=== PATIENT | female | born 1995 | race Caucasian/White ===

== ENCOUNTER 2020-08-07 12:47 | Emergency (ER) | payer OTHER, SELFPAY ==
[2020-08-07 13:16] VITALS: BP 148/85; PULSE 70; RESP 16; TEMP 36.9; O2SAT 98; BMI 23.8
[2020-08-07] MEDS: MAG HYDROX/ALUMINUM/SIMETH SUS 20 ML, LIDOCAINE VISCOUS 2% 15 ML PO (16:23)
[2020-08-07 16:34] LABS: Alanine Aminotransferase 13 IU/L (<35); Albumin 5.5 g/dL (3.5-5.0); Albumin Globulin Ratio 1.5 (1.0-2.8); Alkaline Phosphatase 49 U/L (38-126); Aspartate Aminotransferase 35 IU/L (14-36); BUN Creatinine Ratio 9.7 (6-22); Bilirubin Total 0.7 mg/dL (0.2-1.3); Blood Urea Nitrogen 9 mg/dL (7-17); Calcium 10.4 mg/dL (8.4-10.2); Carbon Dioxide 21 mmol/L (22-32); Chloride 103 mmol/L (98-107); Creatine Kinase 81 U/L (30-135); Estimated Glomerular Filt Rate > 60.0 mL/min (>60); Globulin 3.7 g/dL (1.7-4.1); Glucose 87 mg/dL (70-100); HEMOLYSIS 38 (0-50); Potassium 4.1 mmol/L (3.4-5.1); Sodium 138 mmol/L (137-145); Total Protein 9.2 g/dL (6.3-8.2)
[2020-08-07 16:35] LABS: Add Manual Diff / Slide Review NO; Basophils Absolute Auto 0 /uL (0-100); Basophils Percent Auto 0.4 % (0-2); Eosinophils Absolute Auto 300 /uL (0-450); Eosinophils Percent Auto 2.4 % (2-4); Hematocrit 42.9 % (36-46); Hemoglobin 14.5 g/dL (12.0-16.0); Lymphocytes Absolute Auto 3800 /uL (1100-4500); Lymphocytes Percent Auto 32.9 % (25-40); Mean Corpuscular HGB Conc 33.9 % (30-36); Mean Corpuscular Volume 91.3 fL (80-100); Monocytes Absolute Auto 500 /uL (0-900); Monocytes Percent Auto 4.1 % (3-14); Neutrophils Absolute Auto 6900 /uL (1500-7000); Neutrophils Percent Auto 60.2 % (50-75); Platelet Count 174 X10^3/uL (150-400); Red Cell Distribution Width 12.3 % (11.6-14.8); White Blood Cell Count 11.4 X10^3/uL (4.5-11.0)
[2020-08-07 16:44] LABS: Troponin I < 0.012 ng/mL (0.01-0.034)
[2020-08-07 16:48] VITALS: BP 115/62; PULSE 67; RESP 16; O2SAT 100
--- NOTE | 2020-08-07 17:43 | ED.ABDPAIN ---
HPI - Abdominal Pain General Chief Complaint: Abdominal Pain Stated Complaint: chest pain, heart burn, started Friday Time Seen by Provider: 08/07/20 17:38 Source: patient Mode of arrival: Ambulatory Limitations: no limitations History of Present Illness HPI narrative: This is a 24-year-old female comes emergency department complaint of chest pain that started Friday. Patient states she had epigastric discomfort moving up into her chest. She states it felt similar to heartburn. She has had episodes in the past but this lasted throughout the weekend. She denies any fevers or chills. No cough cold or congestion. No shortness of breath. No syncope. She has not had any vomiting. She did have some mild nausea when she would try to eat with her symptoms. Patient denies any black or bloody stools, no urinary symptoms. No swelling or changes to extremity. She does take ibuprofen every other day, she states she drinks alcohol daily usually 1 drink but multiples on the weekend. Her symptoms started after having large amount of fireball on Friday. She tried Tums without any improvement and came today at the urging of her physician. She has follow-up set up already with her primary care physician. She denies any other past medical history. No prior surgeries. She is allergic to amoxicillin. She does smoke. She uses marijuana but denies other illicit. No family history of cardiac, pulmonary or embolic history. Related Data Previous Rx's Medication Instructions Recorded pantoprazole [Protonix] 40 mg PO DAILY #30 tab 08/07/20 Allergies Allergy/AdvReac Type Severity Reaction Status Date / Time amoxicillin Allergy Rash Verified 08/07/20 13:24 Review of Systems Review of Systems ROS Unobtainable: All systems reviewed & are unremarkable except as noted in HPI and below Patient History Social History Smoking Status: Never smoker Smoking Status: Never smoker tobacco type: vaping alcohol intake frequency: 0-2 drinks per day Alcohol type: hard liquor Substance Use Type: marijuana Exam Narrative Exam Narrative: GENERAL: Alert and oriented x three, well-nourished female in mild distress HEENT: Head normocephalic, atraumatic, EOMI, pupils reactive, face symmetric, moist mucous membranes NECK: Supple, full range of motion CARDIOVASCULAR: Regular rate and rhythm without murmurs, rubs or gallops. Not reproducible chest pain. RESPIRATORY: Breath sounds equal bilaterally, no wheezes rales or rhonchi. ABDOMEN: Soft, nontender. Normoactive bowel sounds all 4 quadrants. No guarding or rebound, rigidity, no mass : No CVA tenderness EXTREMITIES: Normal range of motion, no clubbing or edema. Neurovascularly intact NEUROLOGICAL: Cranial nerves II through XII grossly intact. Moving all extremities SKIN: Warm, dry, no petechiae, no rashes or lesions. Initial Vital Signs Initial Vital Signs: Vital Signs Temperature 98.5 F 08/07/20 13:16 Pulse Rate 70 08/07/20 13:16 Respiratory Rate 16 08/07/20 13:16 Blood Pressure 148/85 H 08/07/20 13:16 Pulse Oximetry 98 08/07/20 13:16 Course Orders Ordered: ED Orders 08/07/20 16:10 Complete Blood Count AUTO DIFF Stat Comprehensive Metabolic Panel Stat Troponin & CK Cardiac Panel Stat 08/07/20 16:16 Thyroid Stimulating Hormone Stat Discontinued Medications Al Hydrox/Mg Hydrox/Simethicone 20 ml/ Lidocaine HCl 15 ml 0 ml PO NOW ONE Stop: 08/07/20 16:17 Last Admin: 08/07/20 16:23 Dose: 35 ml Documented by: JEAN Vital Signs Vital signs: Vital Signs - 8 hr 08/07/20 13:16 08/07/20 16:48 Temperature 98.5 F Pulse Rate 70 67 Respiratory Rate 16 16 Blood Pressure 148/85 H 115/62 Pulse Oximetry 98 100 MDM - Abdominal Pain Lab Data Attestation: I reviewed the patient's lab results. Result diagrams: 08/07/20 16:10 08/07/20 16:10 Labs: Lab Results 08/07/20 08/07/20 08/07/20 Range/Units 16:10 16:10 16:16 WBC 11.4 H (4.5-11.0) X10^3/uL RBC 4.70 (4.0-5.2) X10^6/uL Hgb 14.5 (12.0-16.0) g/dL Hct 42.9 (36-46) % MCV 91.3 (80-100) fL MCH 31.0 (26-34) PG MCHC 33.9 (30-36) % RDW 12.3 (11.6-14.8) % Plt Count 174 (150-400) X10^3/uL Neut % (Auto) 60.2 (50-75) % Lymph % (Auto) 32.9 (25-40) % [place] % (Auto) 4.1 (3-14) % Eos % (Auto) 2.4 (2-4) % Baso % (Auto) 0.4 (0-2) % Neut # (Auto) 6900 (5227-2367) /uL Lymph # (Auto) 3800 (9264-3435) /uL [place] # (Auto) 500 (0-900) /uL Eos # (Auto) 300 (0-450) /uL Baso # (Auto) 0 (0-100) /uL Sodium 138 (137-145) mmol/L Potassium 4.1 (3.4-5.1) mmol/L Chloride 103 (98-107) mmol/L Carbon Dioxide 21 L (22-32) mmol/L BUN 9 (7-17) mg/dL Creatinine 0.93 (0.52-1.04) mg/dL Estimated GFR > 60.0 (>60) mL/min BUN/Creatinine Ratio 9.7 (6-22) Glucose 87 (70-100) mg/dL Calcium 10.4 H (8.4-10.2) mg/dL Total Bilirubin 0.7 (0.2-1.3) mg/dL AST 35 (14-36) IU/L ALT 13 (<35) IU/L Alkaline Phosphatase 49 (38-126) U/L Total Creatine Kinase 81 (30-135) U/L CK-MB (CK-2) TNP CK-MB (CK-2) Rel Index TNP Troponin I < 0.012 (0.01-0.034) ng/mL Total Protein 9.2 H (6.3-8.2) g/dL Albumin 5.5 H (3.5-5.0) g/dL Globulin 3.7 (1.7-4.1) g/dL Albumin/Globulin Ratio 1.5 (1.0-2.8) TSH 1.04 (0.47-4.68) uIU/mL ECG Data Attestation: I personally reviewed and interpreted this ECG as follows: Prior ECG tracings: not available for review Interpretation: Sinus rhythm with sinus arrhythmia rate of 92 MN 130 QRS is 78 QTC 432. No acute ST elevation or depression noted. MDM Narrative Medical decision making narrative: This is a 24-year-old female comes to the emergency department with complaint of anterior chest pain in the epigastrium which started Friday. Patient's symptoms resolved with a GI cocktail here in the department. EKG did not show any acute changes. Labs are unremarkable here in the department. Patient does does not have any significant cardiac history, no family history and patient symptoms are very consistent with heartburn. Patient has been taking NSAIDs quite regularly. Plan to put her on Protonix for short term to see if this improves her symptoms. [id number] options for short-term management patient already has follow-up arranged in the next week. Discharge Plan Departure Patient Disposition: Home Clinical Impression: Heartburn Instructions: DI for Heartburn Activity Restrictions/Additional Instructions: Follow-up with your physician at your scheduled appointment. I would recommend taking Protonix once daily. This may help at your symptoms. You may take Tums and or Maalox. Return for fevers, chills, new chest pain or shortness of breath, persistent vomiting, black or bloody stools, lightheadedness or passing out or other new or concerning symptoms. Prescriptions: New pantoprazole [Protonix] 40 mg tablet,delayed release (DR/EC) 40 mg PO DAILY Qty: 30 RF: 0
[2020-08-07 17:53] LABS: Thyroid Stimulating Hormone 1.04 uIU/mL (0.47-4.68)
== END 2020-08-07 18:03 | disposition home or self-care (01) ==
PROVIDERS: Emergency Provider Emergency Medicine
DX: R12 Heartburn (principal); R07.89 Other chest pain
CPT/HCPCS: 80053; 82550; 84443; 84484; 85025; 93005; 93010; 99283; 99284

== ENCOUNTER 2021-02-27 12:00 | Emergency (ER) | payer OTHER, SELFPAY ==
[2021-02-27 12:05] VITALS: BP 144/75; PULSE 81; RESP 14; TEMP 36.8; O2SAT 99; BMI 22.2
[2021-02-27 12:47] LABS: COVID19 -Nasal RAPID Negative (Negative)
--- NOTE | 2021-02-27 13:32 | ED.URI ---
HPI - URI/Sore Throat <NATHANAEL Carreon - Last Filed: 02/27/21 15:29> General Chief Complaint: Upper Respiratory Symptoms Stated Complaint: covid/flu symptoms Time Seen by Provider: 02/27/21 12:52 Source: patient Mode of arrival: Ambulatory Limitations: no limitations History of Present Illness HPI Narrative: The patient is a 25-year-old female nonsmoker who presents with her for chief complaint of COVID/flu symptoms. The patient has had cough, fatigue, headache muscle aches and chills that started yesterday. She took Tylenol for these. She states she was slightly nauseous, denies any vomiting or diarrhea. She states that she is concerned about COVID, as she had a volleyball tournament on Friday and had a remote exposure. She states she had COVID initially, and started noting that she was having decreased sense of taste and smell, which she had with her initial round. She is fully vaccinated with Moderna. She is concerned about spreading it if she has it as she works as a hairdresser. She denies any chest pain shortness of breath. She has a cough. She complains of congestion. Related Data Previous Rx's Medication Instructions Recorded pantoprazole 40 mg tablet,delayed 40 mg PO DAILY #30 tab 08/07/20 release (Protonix) Allergies Allergy/AdvReac Type Severity Reaction Status Date / Time amoxicillin Allergy Rash Verified 02/27/21 12:09 Review of Systems <NATHANAEL Carreon - Last Filed: 02/27/21 15:29> Review of Systems Narrative: GENERAL: See HPI HEENT: See HPI RESPIRATORY: See HPI CARDIOVASCULAR: Denies chest pain, palpitations, orthopnea, edema, GASTROINTESTINAL: Denies nausea, vomiting, abdominal pain, diarrhea, constipation, melena. : Denies dysuria, frequency, incontinence, hematuria, urinary retention. MUSCULOSKELETAL: denies weakness, joint pain, or bony pain SKIN: Denies rash, skin lesions, or other NEUROLOGIC: Denies weakness, headache, numbness, change in speech, confusion, seizures, incoordination. PSYCHIATRIC: No concerning psychosocial issues. 12 point review of systems is negative except for those stated above Patient History <NATHANAEL Carreon - Last Filed: 02/27/21 15:29> Social History Smoking Status: Never smoker Smoking Status: Never smoker tobacco type: vaping alcohol intake frequency: 0-2 drinks per day Alcohol type: hard liquor Substance Use Type: marijuana Exam <FELTON Carreon - Last Filed: 02/27/21 15:29> Narrative Exam Narrative: GENERAL: This is a well-nourished, well-developed patient, in mild distress. HEAD: Atraumatic. Normocephalic. No temporal or scalp tenderness. EYES: Pupils equal round and reactive. Extraocular motions intact. No scleral icterus. No injection or drainage. ENT: Nose without bleeding, purulent drainage or septal hematoma. Throat without erythema, tonsillar hypertrophy or exudate. Uvula midline. Airway patent. Bilateral TMs pearly paul. NECK: Trachea midline. No JVD or lymphadenopathy. Supple, nontender, no meningeal signs. CARDIOVASCULAR: Regular rate and rhythm RESPIRATORY: Clear to auscultation. Breath sounds equal bilaterally. No wheezes, rales, or rhonchi. No cough noted. No increased respiratory effort. Speaking full sentences. GASTROINTESTINAL: Abdomen soft, non-tender, nondistended. No hepato-splenomegaly, or palpable masses. No guarding. EXTREMITIES: No clubbing, cyanosis, or edema. No joint tenderness, effusion, or edema noted. NEURO: AOx3. SKIN: No rash or erythema on visible skin Initial Vital Signs Initial Vital Signs: Vital Signs Temperature 98.3 F 02/27/21 12:05 Pulse Rate 81 02/27/21 12:05 Respiratory Rate 14 02/27/21 12:05 Blood Pressure 144/75 H 02/27/21 12:05 Pulse Oximetry 99 02/27/21 12:05 <Alessandro Muñiz MD - Last Filed: 03/05/21 12:17> Initial Vital Signs Initial Vital Signs: Vital Signs Temperature 98.3 F 02/27/21 12:05 Pulse Rate 81 02/27/21 12:05 Respiratory Rate 14 02/27/21 12:05 Blood Pressure 144/75 H 02/27/21 12:05 Pulse Oximetry 99 02/27/21 12:05 Course <FELTON Carreon - Last Filed: 02/27/21 15:29> Orders Ordered: ED Orders 02/27/21 12:12 COVID19 -Nasal swab/Pre-Proc Stat Vital Signs Vital signs: Vital Signs - 8 hr 02/27/21 12:05 Temperature 98.3 F Pulse Rate 81 Respiratory Rate 14 Blood Pressure 144/75 H Pulse Oximetry 99 <Alessandro Muñiz MD - Last Filed: 03/05/21 12:17> Orders Ordered: ED Orders 02/27/21 12:12 COVID19 -Nasal swab/Pre-Proc Stat Vital Signs Vital signs: Vital Signs - 8 hr 02/27/21 12:05 Temperature 98.3 F Pulse Rate 81 Respiratory Rate 14 Blood Pressure 144/75 H Pulse Oximetry 99 MDM - URI/Sore Throat <FELTON Carreon - Last Filed: 02/27/21 15:29> Lab Data Labs: Lab Results 02/27/21 Range/Units 12:12 SARS-CoV-2 (PCR) Negative (Negative) MDM Narrative Medical decision making narrative: The patient is a 25-year-old female who presents with a chief complaint of possible COVID. She tests negative today. I did discuss that since her symptoms started yesterday, she may be too early in her course of symptoms to test positive. Discussed at length staying at home, quarantine, work note given, encouraged [id number] measures as needed and able. Discussed the possibility of getting retested in a few days if necessary. Encouraged follow-up with primary care provider. Patient has no questions or concerns upon discharge states understanding of return precautions as well as follow-up care. She has been hemodynamically stable throughout her stay in the ER, nontoxic appearing. <Alessandro Muñiz MD - Last Filed: 03/05/21 12:17> Lab Data Labs: Lab Results 02/27/21 Range/Units 12:12 SARS-CoV-2 (PCR) Negative (Negative) Discharge Plan Departure Patient Disposition: Home Clinical Impression: URI (upper respiratory infection) Instructions: DI for Viral Upper Respiratory Infection -- Adult, COVID-19 Viral Test, Can COVID-19 be prevented? Activity Restrictions/Additional Instructions: Thank you for trusting us with your care today. As discussed, you tested negative for COVID today. However given that you have concerning symptoms, I have given you a work notes that you can stay home and feel better. As discussed, please follow-up with primary care provider. Please use [id number] medications as needed and able to feel better such as acetaminophen Motrin decongestants etcetera Even though you tested negative today, since her symptoms started yesterday you may still test COVID positive in the near future given her short duration of symptoms. You can always get retested in the next few days. Please come back to the emergency department for any acute concerns. Prescriptions: No Action pantoprazole [Protonix] 40 mg tablet,delayed release (DR/EC) 40 mg PO DAILY Qty: 30 0RF Referrals: Miscellaneous,Doctor, [Primary Care Provider] - Stand Alone Forms: Work Release Note <Alessandro Muñiz MD - Last Filed: 03/05/21 12:17> Cosign ED Attending Cosignature Attestation: I was immediately available in the department for consultation. This documentation has been reviewed and I agree with assessment and plan. Supervised by Alessandro Muñiz MD
== END 2021-02-27 13:36 | disposition home or self-care (01) ==
PROVIDERS: Emergency Medicine; Emergency Provider Nurse Practitioner Family
DX: J06.9 Acute upper respiratory infection, unspecified (principal); Z20.822 Contact with and (suspected) exposure to COVID-19
CPT/HCPCS: 87635; 99281; 99282; C9803